=== PATIENT | male | born 1995 | race Caucasian/White ===

== ENCOUNTER 2016-05-29 12:51 | Emergency (ER) | payer MEDICAID, OTHER ==
[~2016-05-29] VITALS: Ht 170.2 cm; Wt 105.0 kg
[2016-05-29 13:24] VITALS: Ht 170.2 cm; Wt 105.0 kg
[2016-05-29] MEDS ORDERED: ONDANSETRON 4 MG INJ IV STA (15:46)
[2016-05-29] MEDS ORDERED: SOD CHLORIDE 0.9% 1,000 ML IV STA (15:46)
[2016-05-29 15:57] LABS: URINE BLOOD (Dip) POC Negative (NEGATIVE)
--- NOTE | 2016-05-29 15:59 | ERD ---
ER Documentation Chief Complaint Date/Time DATE: 05/29/16 TIME: 15:54 Chief Complaint VOMITING,BACK PAIN,UNABLE TO EAT.FEELING TIRED X 2 DAYS HPI Patient is a 21-year-old male who presents to the ED with vomiting and diarrhea 1 day. He states that he went to [place] and drank "sink water" and had a variety of foods at the music festival this past weekend. He states that he developed his symptoms last night and has had non bloody nonbilious emesis. He states that he is unable to keep food down and has had tiny sips of water. Denies fever or chills. Denies headache or dizziness. Also complains of back pain. Denies dysuria or urgency or hematuria. He states that he only had "6 beers" this weekend. Denies drug use. Does have a history of daily cigarette use. ROS All systems reviewed and are negative except as per history of present illness. Medications Home Meds Active Scripts Cyclobenzaprine Hcl* (Cyclobenzaprine Hcl*) 10 Mg Tablet, 10 MG PO TID, #15 TAB Prov:JOSE J PARTIDA PA-C 05/29/16 Ondansetron (Ondansetron Odt) 4 Mg Tab.rapdis, 4 MG PO Q6H Y for NAUSEA AND/OR VOMITING, #10 TAB Prov:JOSE J PARTIDA PA-C 05/29/16 PMhx/Soc Medical and Surgical Hx: pt denies Medical Hx, pt denies Surgical Hx Hx Alcohol Use: No Hx Substance Use: No Hx Tobacco Use: No Smoking Status: Never smoker Physical Exam Vitals Vital Signs Date Time Temp Pulse Resp B/P Pulse Ox O2 Delivery O2 Flow Rate FiO2 05/29/16 17:09 98.3 18 100 05/29/16 13:24 98.3 101 18 141/76 98 Physical Exam GENERAL: Well-developed, well-nourished male. Appears in no acute distress. HEAD: Normocephalic, atraumatic. EYES: Pupils are equally reactive bilaterally. EOMs grossly intact. No conjunctival erythema. ENT: Moist mucous membranes. No uvula deviation. No kissing tonsils. No exudates. NECK: Supple. No lymphadenopathy or thyromegaly. No meningismus. negative kernig. negative brudinski. LUNG: Clear to auscultation bilaterally. No rhonchi, wheezing, rales or coarse breath sounds. HEART: Regular rate and rhythm. No murmurs, rubs or gallops. ABDOMEN: No scars, ecchymosis or rashes noted. Soft, and nondistended. Positive bowel sounds in all four quadrants. No rebound tenderness, no guarding. (-) McBurneys point tenderness. No CVA tenderness. Generalized tenderness with no focal tenderness. BACK: No midline tenderness. Tenderness to the lower and mid back. Extremities: Equal pulses bilaterally. No peripheral clubbing, cyanosis or edema. No unilateral leg swelling. NEUROLOGIC: Alert and oriented. Moving all four extremities. 5/5 strength in all extremities. Normal speech. Steady gait. SKIN: Normal color. Warm and dry. No rashes or lesions. Capillary refill < 2 seconds Result Diagram: 05/29/16 1556 05/29/16 1556 Results 24 hrs Laboratory Tests Test 05/29/16 15:56 05/29/16 15:57 White Blood Count 5.710^3/ul Red Blood Count 5.3710^6/ul Hemoglobin 15.7g/dl Hematocrit 47.1% Mean Corpuscular Volume 87.7fl Mean Corpuscular Hemoglobin 29.2pg Mean Corpuscular Hemoglobin Concent 33.3g/dl Red Cell Distribution Width 11.9% Platelet Count 25816^3/UL Mean Platelet Volume 10.0fl Neutrophils % 78.6% Lymphocytes % 10.1% Monocytes % 9.4% Eosinophils % 0.7% Basophils % 0.5% Nucleated Red Blood Cells % 0.0/100WBC Neutrophils # 4.410^3/ul Lymphocytes # 0.610^3/ul Monocytes # 0.510^3/ul Eosinophils # 0.010^3/ul Basophils # 0.010^3/ul Nucleated Red Blood Cells # 0.010^3/ul Sodium Level 138mmol/L Potassium Level 3.8mmol/L Chloride Level 96mmol/L Carbon Dioxide Level 27mmol/L Anion Gap 19 Blood Urea Nitrogen 16mg/dl Creatinine 1.18mg/dl Glucose Level 109mg/dl Calcium Level 9.7mg/dl Total Bilirubin 0.9mg/dl Direct Bilirubin 0.00mg/dl Indirect Bilirubin 0.9mg/dl Aspartate Amino Transf (AST/SGOT) 25IU/L Alanine Aminotransferase (ALT/SGPT) 34IU/L Alkaline Phosphatase 91IU/L Total Protein 8.5g/dl Albumin 5.1g/dl Globulin 3.40g/dl Albumin/Globulin Ratio 1.50 Lipase 79U/L Bedside Urine pH (LAB) 6.0 Bedside Urine Protein (LAB) 1+ Bedside Urine Glucose (UA) Negative Bedside Urine Ketones (LAB) Negative Bedside Urine Blood Negative Bedside Urine Nitrite (LAB) Negative Bedside Urine Leukocyte Esterase (L Negative Current Medications Medications (Trade) Dose Ordered Sig/Lauren Route PRN Reason Start Time Stop Time Status Last Admin Dose Admin Sodium Chloride (NS) 1,000 ml @ 1,000 mls/hr Q1H STAT IV 05/29/16 15:46 05/29/16 16:45 DC 05/29/16 15:59 Ondansetron HCl (Zofran Inj) 4 mg ONCE STAT IV 05/29/16 15:46 05/29/16 15:48 DC 05/29/16 16:00 Ketorolac Tromethamine (Toradol) 30 mg ONCE STAT IV 05/29/16 16:01 05/29/16 16:02 DC 05/29/16 16:06 Procedures/MDM ER COURSE: I kept the patient and/or family informed of laboratory and diagnostic imaging results throughout the emergency room course. MEDICATIONS IV fluids, saline, Zofran, toradol MEDICAL DECISION MAKING: This is a 21-year-old man who presents with vomiting and diarrhea 1 day. Vital signs were reviewed. Patient is afebrile. Patient is not hypoxic. Patient is not toxic or ill-appearing. Patient has vomiting and diarrhea of unknown etiology likely viral. After administration of fluids and saline and Zofran, I reexamined patient and he stated extreme improvement in symptoms. He stated that he felt almost 100% better. CBC showed no evidence of systemic infection or severe anemia. CMP showed no evidence of electrolyte abnormalities, severe acidosis, alkalosis, renal failure, or liver disease. Lipase showed no evidence of acute pancreatitis. UA showed no evidence of leukocytes, nitrites or hematuria. I have low suspicion for dehydration. Low suspicion for ACS, AAA, perforated ulcer, bowel obstruction, cholecystitis, choledocholithiasis, cholangitis, pancreatitis, hepatic abscess, appendicitis, diverticulitis, gastroenteritis, hepatitis, peptic ulcer disease, nephrolithiasis, septic stone or obstructive stone. His slight elevation in heart rate is likely due to vomiting. At this time, patient is stable for discharge and outpatient management with no new complaints during the ER course. Patient was sent home with Lizzie Batres and note for work.. Patient will be discharged home with instructions to recheck for new or worsening symptoms such as fever, nausea, weakness, LOC and to follow up with primary care in the next 1-2 days. Patient was advised to return to the ER for any new or worsening symptoms. Plan was discussed and patient and/or family understands and agrees. Home instructions were given. Departure Diagnosis: Primary Impression: Nausea, vomiting, and diarrhea Condition: Stable JOSE J PARTIDA PA-C May 29, 2016 15:59
[2016-05-29] MEDS ORDERED: KETOROLAC 30 MG INJ IV STA (16:01)
[2016-05-29 16:14] LABS: ADD SCAN DIFF NO
[2016-05-29 16:16] LABS: ABNORMAL IP MESSAGE 1; BASOPHILS % 0.5 % (0.0-2.0); EOSINOPHILS % 0.7 % (0.0-7.0); HEMATOCRIT 47.1 % (42.0-52.0); HEMOGLOBIN 15.7 g/dl (14.0-18.0); LYMPHOCYTES # 0.6 10^3/ul (0.8-2.9); LYMPHOCYTES % 10.1 % (15.0-51.0); MEAN CORPUSCULAR HEMOGLOBIN 29.2 pg (29.0-33.0); MEAN CORPUSCULAR HGB CONC 33.3 g/dl (32.0-37.0); MEAN CORPUSCULAR VOLUME 87.7 fl (82.0-101.0); MONOCYTE # 0.5 10^3/ul (0.3-0.9); MONOCYTES % 9.4 % (0.0-11.0); NEUTROPHIL # 4.4 10^3/ul (1.6-7.5); NEUTROPHILS % 78.6 % (39.0-77.0); PLATELET COUNT 176 10^3/UL (140-415); RED BLOOD COUNT 5.37 10^6/ul (4.70-6.10); RED CELL DISTRIBUTION WIDTH 11.9 % (11.5-14.5); WHITE BLOOD COUNT 5.7 10^3/ul (4.8-10.8)
[2016-05-29 16:29] LABS: ALBUMIN 5.1 g/dl (3.3-4.9)
[2016-05-29 16:30] LABS: POTASSIUM 3.8 mmol/L (3.5-5.1)
[2016-05-29 16:32] LABS: ALBUMIN/GLOBULIN RATIO 1.5; BILIRUBIN,INDIRECT 0.9 mg/dl (0-1.1); BILIRUBIN,TOTAL 0.9 mg/dl (0.2-1.3); CREATININE 1.18 mg/dl (0.61-1.24); TOTAL PROTEIN 8.5 g/dl (6.1-8.1)
[2016-05-29 16:33] LABS: CALCIUM 9.7 mg/dl (8.4-10.2)
[2016-05-29] MEDS ORDERED: CYCL-319 PO (16:54)
[2016-05-29] MEDS ORDERED: ONDA4TAB14 PO (16:54)
[2016-05-29 17:09] VITALS: RESP 18; TEMP 98.3
== END 2016-05-29 17:10 | disposition home or self-care (01) ==
LOC: FTE 12:51
DX: R11.2 Nausea with vomiting, unspecified (principal); R19.7 Diarrhea, unspecified
CPT/HCPCS: 36415; 80053; 81003; 83690; 85025; 96374; 96375; J1885; J2405; J7030; Z7502

== ENCOUNTER 2017-10-19 21:40 | Emergency (ER) | END 2017-10-20 01:49 | disposition home or self-care (01) ==